=== PATIENT | female | born 1980 | race Caucasian/White ===

== ENCOUNTER 2018-04-20 08:58 | Emergency (ER) | payer SELFPAY ==
[2018-04-20 09:12] VITALS: BP 111/73
[2018-04-20] MEDS: Albuterol HFA INHALER* 8 gm MDI INH ONE (10:15)
[2018-04-20] MEDS: predniSONE TAB* 20 MG PO ONE (10:15)
--- NOTE | 2018-04-20 10:16 | UC ---
Respiratory Complaint HPI - HPI Summary HPI Summary: The patient is a 37-year-old female that presents here with progressively worsening cough and wheezing times days. She has a history of childhood asthma. She is a smoker. She denies any fever but has had chills. She has some chest pain and back pain when she coughs. She has some myalgias and fatigue. - History of Current Complaint Chief Complaint: UCRespiratory Stated Complaint: COUGH,CHEST CONGESTION Time Seen by Provider: 04/20/18 10:01 Hx Obtained From: Patient Hx Last Menstrual Period: 3 years ago, [place] Onset/Duration: Gradual Onset, Lasting Days - 5 Timing: Constant Severity Initially: Mild Severity Currently: Moderate Pain Intensity: 3 Pain Scale Used: 0-10 Numeric Character: Cough: Nonproductive Aggravating Factors: Nothing Associated Signs And Symptoms: Positive: Wheezing - Allergies/Home Medications Allergies/Adverse Reactions: Allergies Allergy/AdvReac Type Severity Reaction Status Date / Time aspirin Allergy Hives Verified 04/20/18 09:08 cephalexin Allergy Hives Verified 04/20/18 09:08 Home Medications: Home Medications Levothyroxine TAB* [Synthroid TAB*] 88 mcg PO DAILY 04/20/18 [History Confirmed 04/20/18] PMH/Surg Hx/FS Hx/Imm Hx Previously Healthy: Yes Respiratory History: Asthma, Bronchitis - Surgical History Surgical History: Yes Surgery Procedure, Year, and Place: EYE SX-LASER. thyroidectomy 09/27/2016 - Family History Known Family History: Positive: Hypertension, Respiratory Disease - Social History Alcohol Use: Occasionally Substance Use Type: None Smoking Status (MU): Heavy Every Day Tobacco Smoker Type: Cigarettes Amount Used/How Often: 3/4 PPD Have You Smoked in the Last Year: Yes Household Exposure Type: Cigarettes Review of Systems Constitutional: Chills, Fatigue Skin: Negative Eyes: Negative ENT: Negative Respiratory: Cough Cardiovascular: Negative Gastrointestinal: Negative Genitourinary: Negative Motor: Negative Neurovascular: Negative Musculoskeletal: Negative Neurological: Negative Psychological: Negative Is Patient Immunocompromised?: No All Other Systems Reviewed And Are Negative: Yes Physical Exam Triage Information Reviewed: Yes Appearance: Well-Appearing, No Pain Distress, Well-Nourished Vital Signs: Initial Vital Signs Temp 99 F 04/20/18 09:06 Pulse 85 04/20/18 09:06 Resp 16 04/20/18 09:06 BP 111/73 04/20/18 09:06 Pulse Ox 100 04/20/18 09:06 Vital Signs Reviewed: Yes Eyes: Positive: Conjunctiva Clear ENT: Positive: Hearing grossly normal. Negative: Nasal congestion, Nasal drainage, Tonsillar swelling, Tonsillar exudate, Muffled voice, Hoarse voice, Sinus tenderness Neck: Positive: Supple, Nontender, No Lymphadenopathy Respiratory: Positive: No respiratory distress, No accessory muscle use, Wheezing Cardiovascular: Positive: RRR, No Murmur Musculoskeletal: Positive: Strength Intact, ROM Intact, No Edema Neurological: Positive: Alert Psychological Exam: Normal Skin Exam: Normal UC Diagnostic Evaluation - Laboratory O2 Sat by Pulse Oximetry: 100 - normal/not hypoxic Respiratory Course/Dx - Differential Dx/Diagnosis Provider Diagnoses: acute bronchitis with bronchospasm Discharge - Sign-Out/Discharge Documenting (check all that apply): Patient Departure All imaging exams completed and their final reports reviewed: No Studies - Discharge Plan Condition: Stable Disposition: HOME Prescriptions: Albuterol 2.5MG/3ML (0.083%)* [Ventolin 2.5 MG/3 ML NEB.ELICEO*] 2.5 mg INH QID PRN #1 neb.eliceo PRN Reason: Wheezing Amoxicillin PO (*) [Amoxicillin 875 MG (*)] 875 mg PO BID #14 tab predniSONE [Deltasone 20 MG TAB] 40 mg PO DAILY #10 tab Patient Education Materials: Acute Bronchitis (ED), Bronchospasm (ED) Referrals: Jean Huddleston MD [Primary Care Provider] - 4 Days Additional Instructions: rest fluids mucinex or robitussin use inhaler or nebulizer 4x day for about a week recheck for worsening symptoms see your MD early next week if not beeling back to normal - Billing Disposition and Condition Condition: STABLE Disposition: Home
== END 2018-04-20 10:20 | disposition home or self-care (01) ==
LOC: UCCORT 08:58
DX: J20.9 Acute bronchitis, unspecified (principal); Z88.1 Allergy status to other antibiotic agents; Z88.6 Allergy status to analgesic agent; F17.210 Nicotine dependence, cigarettes, uncomplicated
CPT/HCPCS: 99213; A9270-GY; G0463; J7512